=== PATIENT | male | born 1980 | race Caucasian/White ===

== ENCOUNTER 2020-12-10 12:09 | Inpatient (IN) | payer OTHER ==
[2020-12-10 12:36] VITALS: BMI 25.3
[2020-12-10] MEDS ORDERED: BISMUTH SUBSALICYLATE 524 MG/30 ML UD PO PRN (13:48)
[2020-12-10] MEDS ORDERED: NICOTINE POLACRILEX 2 MG GUM BUC PRN (13:48)
[2020-12-10] MEDS ORDERED: ONDANSETRON *ODT* 4 MG TABLET SL PRN (13:48)
[2020-12-10] MEDS ORDERED: MAGNESIUM CITRATE 300 ML BOTTLE PO PRN (13:48)
[2020-12-10] MEDS ORDERED: IBUPROFEN 400 MG TABLET (FP) PO PRN (13:48)
[2020-12-10] MEDS ORDERED: MAGNESIUM HYDROX 2400MG/30ML ORAL SUSPENSION 30 ML CUP PO PRN (13:48)
[2020-12-10] MEDS ORDERED: cloNIDine HCL 0.1 MG TABLET PO PRN (13:48)
[2020-12-10] MEDS ORDERED: METHOCARBAMOL 500 MG TABLET PO PRN (13:48)
[2020-12-10] MEDS ORDERED: MAG HYDROX/AL HYDROX/SIMETH 30 ML UNIT-DOSE CUP PO PRN (13:48)
[2020-12-10] MEDS ORDERED: ACETAMINOPHEN 325 MG TABLET (FP) PO PRN ×2 (13:48)
[2020-12-10] MEDS ORDERED: MENTHOL/PHENOL 1 EACH UD MM PRN (13:48)
[2020-12-10] MEDS ORDERED: METHADONE HCL 10 MG TABLET (FOR DETOX USE ONLY) PO ONE (14:00)
[2020-12-10] MEDS: GABAPENTIN 300 MG CAPSULE PO SCH ×2 (14:05→22:39)
[2020-12-10] MEDS: NICOTINE 21 MG/24 HOURS TOPICAL PATCH TD SCH (14:05)
[2020-12-10] MEDS: hydrOXYzine PAMOATE 25 MG CAPSULE (FP) PO SCH ×3 (14:05→22:39)
[2020-12-10] MEDS: AMOXICILLIN 500 MG CAPSULE (FP) PO SCH ×2 (15:00→22:39)
[2020-12-10 18:24] LABS: MCH 27.8 pg (25.7-33.7); MCHC 32.5 g/dl (32.0-35.9); MEAN CELL VOLUME 85.4 fl (80-96); MEAN PLT VOLUME 8.1 fl (7.5-11.1); PLATELET COUNT 352 K/MM3 (134-434); RBC 4.68 M/mm3 (4.00-5.60); WHITE BLOOD COUNT 6.6 K/mm3 (4.0-10.0)
[2020-12-10 18:25] LABS: POTASSIUM 4.1 mmol/L (3.5-5.1)
[2020-12-10 18:39] LABS: ALBUMIN 3.9 g/dl (3.4-5.0); BLOOD UREA NITROGEN 11.3 mg/dL (7-18); CALCIUM 9.5 mg/dL (8.5-10.1)
[2020-12-10 18:41] LABS: CREATININE 1.4 mg/dL (0.55-1.3)
[2020-12-10 18:44] LABS: BILIRUBIN,TOTAL 0.7 mg/dL (0.2-1); TOT PROT 8.1 g/dl (6.4-8.2)
[2020-12-10 19:21] LABS: HIV INTERPRETATION NEGATIVE (NEGATIVE)
[2020-12-10] MEDS: MELATONIN 5 MG TABLETS PO SCH (22:39)
[2020-12-10] MEDS: THIAMINE HCL 100 MG TABLET (FP) PO SCH (22:39)
[2020-12-11] MEDS: AMOXICILLIN 500 MG CAPSULE (FP) PO SCH ×3 (06:15→22:26)
[2020-12-11] MEDS: hydrOXYzine PAMOATE 25 MG CAPSULE (FP) PO SCH (06:15)
[2020-12-11] MEDS: GABAPENTIN 300 MG CAPSULE PO SCH ×3 (06:15→22:25)
[2020-12-11] MEDS ORDERED: METHADONE HCL 10 MG TABLET (FOR DETOX USE ONLY) ONE (08:29)
[2020-12-11] MEDS ORDERED: METHADONE HCL 5 MG TABLET (FOR DETOX USE ONLY) ONE (08:30)
[2020-12-11] MEDS ORDERED: METHADONE (DETOX) 20 MG, METHADONE (DETOX) 5 MG PO ONE (10:00)
[2020-12-11] MEDS: PRENATAL VITAMINS W/ FOLIC ACID TABLET (FP) PO SCH (10:16)
[2020-12-11] MEDS: NICOTINE 21 MG/24 HOURS TOPICAL PATCH TD SCH (10:17)
[2020-12-11] MEDS: risperiDONE 0.5 MG TABLET PO SCH (10:18)
[2020-12-11] MEDS: THIAMINE HCL 100 MG TABLET (FP) PO SCH (22:26)
[2020-12-11] MEDS: MELATONIN 5 MG TABLETS PO SCH (22:27)
[2020-12-12] MEDS: AMOXICILLIN 500 MG CAPSULE (FP) PO SCH ×3 (06:15→22:11)
[2020-12-12] MEDS: GABAPENTIN 300 MG CAPSULE PO SCH ×3 (06:16→22:11)
[2020-12-12] MEDS ORDERED: METHADONE HCL 10 MG TABLET (FOR DETOX USE ONLY) PO ONE (10:00)
[2020-12-12] MEDS: NICOTINE 21 MG/24 HOURS TOPICAL PATCH TD SCH (10:09)
[2020-12-12] MEDS: PRENATAL VITAMINS W/ FOLIC ACID TABLET (FP) PO SCH (10:10)
[2020-12-12] MEDS: risperiDONE 0.5 MG TABLET PO SCH (10:11)
[2020-12-12] MEDS: THIAMINE HCL 100 MG TABLET (FP) PO SCH (22:11)
[2020-12-12] MEDS: SUVOREXANT 10 MG TABLET PO PRN (22:11)
[2020-12-13] MEDS: AMOXICILLIN 500 MG CAPSULE (FP) PO SCH ×3 (07:16→22:00)
[2020-12-13] MEDS: GABAPENTIN 300 MG CAPSULE PO SCH ×3 (07:16→22:00)
[2020-12-13] MEDS ORDERED: METHADONE HCL 10 MG TABLET (FOR DETOX USE ONLY) ONE (08:12)
[2020-12-13] MEDS ORDERED: METHADONE HCL 5 MG TABLET (FOR DETOX USE ONLY) ONE (08:12)
[2020-12-13] MEDS: PRENATAL VITAMINS W/ FOLIC ACID TABLET (FP) PO SCH (09:59)
[2020-12-13] MEDS: risperiDONE 0.5 MG TABLET PO SCH (09:59)
[2020-12-13] MEDS: NICOTINE 21 MG/24 HOURS TOPICAL PATCH TD SCH (10:00)
[2020-12-13] MEDS ORDERED: METHADONE (DETOX) 10 MG, METHADONE (DETOX) 5 MG PO ONE (10:00)
[2020-12-13] MEDS: hydrOXYzine PAMOATE 25 MG CAPSULE (FP) PO PRN ×2 (10:02→22:00)
[2020-12-13] MEDS: THIAMINE HCL 100 MG TABLET (FP) PO SCH (22:00)
[2020-12-13] MEDS: SUVOREXANT 10 MG TABLET PO PRN (22:03)
[2020-12-14] MEDS: AMOXICILLIN 500 MG CAPSULE (FP) PO SCH ×3 (06:50→22:23)
[2020-12-14] MEDS: GABAPENTIN 300 MG CAPSULE PO SCH ×3 (06:50→22:23)
[2020-12-14] MEDS: risperiDONE 0.5 MG TABLET PO SCH (09:31)
[2020-12-14] MEDS: PRENATAL VITAMINS W/ FOLIC ACID TABLET (FP) PO SCH (09:31)
[2020-12-14] MEDS: NICOTINE 21 MG/24 HOURS TOPICAL PATCH TD SCH (09:32)
[2020-12-14] MEDS: hydrOXYzine PAMOATE 25 MG CAPSULE (FP) PO PRN ×2 (09:32→22:24)
[2020-12-14] MEDS ORDERED: METHADONE HCL 10 MG TABLET (FOR DETOX USE ONLY) PO ONE (10:00)
[2020-12-14] MEDS: THIAMINE HCL 100 MG TABLET (FP) PO SCH (22:24)
[2020-12-15] MEDS ORDERED: METHADONE HCL 5 MG TABLET (FOR DETOX USE ONLY) PO ONE (06:00)
[2020-12-15] MEDS: GABAPENTIN 300 MG CAPSULE PO SCH (06:27)
[2020-12-15] MEDS: AMOXICILLIN 500 MG CAPSULE (FP) PO SCH (06:27)
[2020-12-15] MEDS: hydrOXYzine PAMOATE 25 MG CAPSULE (FP) PO PRN (06:31)
[2020-12-15 09:06] VITALS: BP 110/73; PULSE 100; TEMP 97.7
[2020-12-15] MEDS: risperiDONE 0.5 MG TABLET PO SCH (10:49)
[2020-12-15] MEDS: PRENATAL VITAMINS W/ FOLIC ACID TABLET (FP) PO SCH (10:49)
[2020-12-15] MEDS: NICOTINE 21 MG/24 HOURS TOPICAL PATCH TD SCH (10:49)
== END 2020-12-15 09:22 | disposition home or self-care (01) | DRG 773 ==
LOC: YASAS 12:09 → Y3N 13:07
PROVIDERS: ADMIT Allergy & Immunology; ATTEND Allergy & Immunology
PROC: HZ2ZZZZ Detoxification Services for Substance Abuse Treatment (ICD-10-PCS; principal; 2020-12-10)
DX: F11.23 Opioid dependence with withdrawal (principal); F14.20 Cocaine dependence, uncomplicated; F12.20 Cannabis dependence, uncomplicated; F17.210 Nicotine dependence, cigarettes, uncomplicated; N17.9 Acute kidney failure, unspecified; F31.9 Bipolar disorder, unspecified; F43.10 Post-traumatic stress disorder, unspecified; G47.00 Insomnia, unspecified; L08.89 Other specified local infections of the skin and subcutaneous tissue; Z56.0 Unemployment, unspecified
CPT/HCPCS: 36415; 80053; 85027; 86780; 87389; C9803; U0003

== ENCOUNTER 2022-12-16 16:20 | Inpatient (IN) | payer OTHER ==
[2022-12-16 17:03] VITALS: BMI 25.0
[2022-12-16] MEDS ORDERED: cloNIDine HCL 0.1 MG TABLET PO PRN (18:00)
[2022-12-16] MEDS ORDERED: POLYETHYLENE GLYCOL (HEALTHYLAX) 3350 17 GM PACKET PO PRN (18:01)
[2022-12-16] MEDS ORDERED: ACETAMINOPHEN 325 MG TABLET (FP) PO PRN ×2 (18:01)
[2022-12-16] MEDS ORDERED: DICYCLOMINE HCL 10 MG CAPSULE PO PRN (18:01)
[2022-12-16] MEDS ORDERED: METHOCARBAMOL 500 MG TABLET PO PRN (18:01)
[2022-12-16] MEDS ORDERED: BISMUTH SUBSALICYLATE 524 MG/30 ML PO PRN (18:01)
[2022-12-16] MEDS ORDERED: MAG HYDROX/AL HYDROX/SIMETH 30 ML UNIT-DOSE CUP PO PRN (18:01)
[2022-12-16] MEDS ORDERED: MAGNESIUM HYDROX 2400MG/30ML ORAL SUSPENSION 30 ML CUP PO PRN (18:01)
[2022-12-16] MEDS ORDERED: BENZOCAINE/MENTHOL (CHLORASEPTIC ) LOZENGE MM PRN (18:01)
[2022-12-16] MEDS ORDERED: IBUPROFEN 400 MG TABLET (FP) PO PRN (18:01)
[2022-12-16] MEDS ORDERED: LOPERAMIDE HCL 2 MG CAPSULE PO PRN (18:01)
[2022-12-16] MEDS ORDERED: NALOXONE HCL (KLOXXADO) 8 MG SPRAY NS PRN (18:01)
[2022-12-16] MEDS ORDERED: IBUPROFEN 600 MG TABLET (FP) PO PRN (18:01)
[2022-12-16] MEDS ORDERED: ONDANSETRON *ODT* 4 MG TABLET SL PRN (18:01)
[2022-12-16] MEDS: NICOTINE 21 MG/24 HOURS TOPICAL PATCH TD SCH ×2 (18:16→19:58)
[2022-12-16] MEDS ORDERED: methaDONE HCL 10 MG TABLET (FOR DETOX USE ONLY) PO ONE (22:00)
[2022-12-16] MEDS: THIAMINE HCL 100 MG TABLET (FP) PO SCH (22:48)
[2022-12-16] MEDS: MELATONIN 5 MG TABLETS PO SCH (22:48)
[2022-12-17] MEDS: hydrOXYzine PAMOATE 25 MG CAPSULE (FP) PO PRN ×2 (10:30→22:09)
[2022-12-17] MEDS: NICOTINE 21 MG/24 HOURS TOPICAL PATCH TD SCH (10:32)
[2022-12-17 12:00] LABS: HEMATOCRIT 36.4 % (35.4-49); HEMOGLOBIN 12.1 GM/dL (11.7-16.9); MCH 29.1 pg (25.7-33.7); MCHC 33.3 g/dl (32.0-35.9); MEAN CELL VOLUME 87.2 fl (80-96); MEAN PLT VOLUME 8.2 fl (7.5-11.1); PLATELET COUNT 294 10^3/uL (134-434); RBC 4.17 M/mm3 (4.00-5.60); RDW 14.1 % (11.9-15.9); WHITE BLOOD COUNT 4.6 K/mm3 (4.0-10.0)
[2022-12-17 12:06] LABS: CALCIUM 8.5 mg/dL (8.5-10.1)
[2022-12-17 12:07] LABS: ALBUMIN 2.7 g/dl (3.4-5.0)
[2022-12-17 12:09] LABS: BLOOD UREA NITROGEN 10.6 mg/dL (7-18)
[2022-12-17 12:10] LABS: CREATININE 1.1 mg/dL (0.55-1.3)
[2022-12-17 12:11] LABS: TOT PROT 5.5 g/dl (6.4-8.2)
[2022-12-17 12:14] LABS: BILIRUBIN,TOTAL 0.2 mg/dL (0.2-1)
[2022-12-17] MEDS: MELATONIN 5 MG TABLETS PO SCH (22:08)
[2022-12-17] MEDS: THIAMINE HCL 100 MG TABLET (FP) PO SCH (22:08)
[2022-12-17] MEDS: GABAPENTIN 300 MG CAPSULE PO SCH (22:09)
[2022-12-18] MEDS ORDERED: methaDONE HCL 10 MG TABLET (FOR DETOX USE ONLY) PO ONE (10:00)
[2022-12-18] MEDS: NICOTINE 21 MG/24 HOURS TOPICAL PATCH TD SCH (10:36)
[2022-12-18] MEDS: GABAPENTIN 300 MG CAPSULE PO SCH ×2 (10:37→22:11)
[2022-12-18] MEDS: MELATONIN 5 MG TABLETS PO SCH (22:11)
[2022-12-18] MEDS: THIAMINE HCL 100 MG TABLET (FP) PO SCH (22:11)
[2022-12-19] MEDS: GABAPENTIN 300 MG CAPSULE PO SCH ×2 (10:27→22:56)
[2022-12-19] MEDS: NICOTINE 21 MG/24 HOURS TOPICAL PATCH TD SCH (10:30)
[2022-12-19] MEDS: THIAMINE HCL 100 MG TABLET (FP) PO SCH (22:55)
[2022-12-19] MEDS: MELATONIN 5 MG TABLETS PO SCH (22:55)
[2022-12-20] MEDS ORDERED: methaDONE HCL 10 MG TABLET (FOR DETOX USE ONLY) PO ONE (10:00)
[2022-12-20] MEDS: GABAPENTIN 300 MG CAPSULE PO SCH ×2 (10:04→22:21)
[2022-12-20] MEDS: NICOTINE 21 MG/24 HOURS TOPICAL PATCH TD SCH (10:04)
[2022-12-20 21:50] VITALS: RESP 18
[2022-12-20] MEDS: MELATONIN 5 MG TABLETS PO SCH (22:21)
[2022-12-20] MEDS: THIAMINE HCL 100 MG TABLET (FP) PO SCH (22:21)
[2022-12-20] MEDS: hydrOXYzine PAMOATE 25 MG CAPSULE (FP) PO PRN (22:22)
[2022-12-21 09:35] VITALS: BP 110/65; PULSE 77; TEMP 97.1
[2022-12-21] MEDS: NICOTINE 21 MG/24 HOURS TOPICAL PATCH TD SCH (10:27)
[2022-12-21] MEDS: GABAPENTIN 300 MG CAPSULE PO SCH (10:27)
== END 2022-12-21 11:36 | disposition home or self-care (01) | DRG 773 ==
LOC: YASAS 16:20 → Y6N 18:28
PROVIDERS: ADMIT Allergy & Immunology; ATTEND Family Medicine
PROC: HZ2ZZZZ Detoxification Services for Substance Abuse Treatment (ICD-10-PCS; principal; 2022-12-16)
DX: F11.23 Opioid dependence with withdrawal (principal); F12.10 Cannabis abuse, uncomplicated; F17.210 Nicotine dependence, cigarettes, uncomplicated; F39 Unspecified mood [affective] disorder; F32.A Depression, unspecified; F43.10 Post-traumatic stress disorder, unspecified
CPT/HCPCS: 36415; 80053; 85027; 86780; 87811; C9803-CS; U0003; U0005

== ENCOUNTER 2023-01-10 12:39 | Inpatient (IN) | payer OTHER ==
[2023-01-10 13:23] VITALS: BMI 25.7
[2023-01-10] MEDS ORDERED: MAGNESIUM HYDROX 2400MG/30ML ORAL SUSPENSION 30 ML CUP PO PRN (13:36)
[2023-01-10] MEDS ORDERED: NALOXONE HCL (KLOXXADO) 8 MG SPRAY NS PRN (13:36)
[2023-01-10] MEDS ORDERED: METHOCARBAMOL 500 MG TABLET PO PRN (13:36)
[2023-01-10] MEDS ORDERED: ACETAMINOPHEN 325 MG TABLET (FP) PO PRN ×2 (13:36)
[2023-01-10] MEDS ORDERED: hydrOXYzine PAMOATE 25 MG CAPSULE (FP) PO PRN (13:36)
[2023-01-10] MEDS ORDERED: cloNIDine HCL 0.1 MG TABLET PO PRN (13:36)
[2023-01-10] MEDS ORDERED: ONDANSETRON *ODT* 4 MG TABLET SL PRN (13:36)
[2023-01-10] MEDS ORDERED: MAG HYDROX/AL HYDROX/SIMETH 30 ML UNIT-DOSE CUP PO PRN (13:36)
[2023-01-10] MEDS ORDERED: POLYETHYLENE GLYCOL (HEALTHYLAX) 3350 17 GM PACKET PO PRN (13:36)
[2023-01-10] MEDS ORDERED: BENZOCAINE/MENTHOL (CHLORASEPTIC ) LOZENGE MM PRN (13:36)
[2023-01-10] MEDS ORDERED: NICOTINE POLACRILEX 4 MG GUM BUC PRN (13:36)
[2023-01-10] MEDS ORDERED: BISMUTH SUBSALICYLATE 262 MG/15 ML BTL PO PRN (13:36)
[2023-01-10] MEDS ORDERED: methaDONE HCL 10 MG TABLET (FOR DETOX USE ONLY) PO ONE (13:36)
[2023-01-10] MEDS ORDERED: DICYCLOMINE HCL 10 MG CAPSULE PO PRN (13:36)
[2023-01-10] MEDS ORDERED: IBUPROFEN 400 MG TABLET (FP) PO PRN (13:36)
[2023-01-10] MEDS ORDERED: LOPERAMIDE HCL 2 MG CAPSULE PO PRN (13:36)
[2023-01-10] MEDS ORDERED: IBUPROFEN 600 MG TABLET (FP) PO PRN (13:36)
[2023-01-10] MEDS: NICOTINE 21 MG/24 HOURS TOPICAL PATCH TD SCH (14:31)
[2023-01-10] MEDS ORDERED: NICOTINE 21 MG/24 HOURS TOPICAL PATCH ONE (14:33)
[2023-01-10] MEDS ORDERED: methaDONE HCL 10 MG TABLET (FOR DETOX USE ONLY) ONE (14:34)
[2023-01-10] MEDS ORDERED: MELATONIN 5 MG TABLETS PO SCH (22:00)
[2023-01-10] MEDS: THIAMINE HCL 100 MG TABLET (FP) PO SCH (23:58)
[2023-01-11] MEDS: NICOTINE 21 MG/24 HOURS TOPICAL PATCH TD SCH (10:29)
[2023-01-11] MEDS: PRENATAL VITAMINS W/ FOLIC ACID TABLET (FP) PO SCH (10:29)
[2023-01-11 11:26] LABS: HEMATOCRIT 38.2 % (35.4-49); HEMOGLOBIN 12.9 GM/dL (11.7-16.9); MCHC 33.8 g/dl (32.0-35.9); MEAN CELL VOLUME 85.8 fl (80-96); MEAN PLT VOLUME 9.3 fl (7.5-11.1); PLATELET COUNT 148 10^3/uL (134-434); RBC 4.45 M/mm3 (4.00-5.60); RDW 13.8 % (11.9-15.9); WHITE BLOOD COUNT 5.3 K/mm3 (4.0-10.0)
[2023-01-11 11:31] LABS: CALCIUM 9.2 mg/dL (8.5-10.1)
[2023-01-11 11:32] LABS: ALBUMIN 3.3 g/dl (3.4-5.0); BLOOD UREA NITROGEN 6.3 mg/dL (7-18)
[2023-01-11 11:35] LABS: BILIRUBIN,TOTAL 0.4 mg/dL (0.2-1); CREATININE 1.2 mg/dL (0.55-1.3)
[2023-01-11 11:37] LABS: TOT PROT 6.4 g/dl (6.4-8.2)
[2023-01-11] MEDS: GABAPENTIN 300 MG CAPSULE PO SCH ×2 (13:29→22:18)
[2023-01-11] MEDS: THIAMINE HCL 100 MG TABLET (FP) PO SCH (22:19)
[2023-01-11] MEDS: SUVOREXANT 10 MG TABLET PO PRN (23:22)
[2023-01-12] MEDS ORDERED: methaDONE HCL 10 MG TABLET (FOR DETOX USE ONLY) PO ONE (10:00)
[2023-01-12] MEDS: GABAPENTIN 300 MG CAPSULE PO SCH ×2 (10:10→22:22)
[2023-01-12] MEDS: PRENATAL VITAMINS W/ FOLIC ACID TABLET (FP) PO SCH (10:10)
[2023-01-12] MEDS: NICOTINE 21 MG/24 HOURS TOPICAL PATCH TD SCH (10:12)
[2023-01-12] MEDS: NICOTINE 10 MG CARTRIDGE (INHALER) IH PRN (10:12)
[2023-01-12] MEDS: THIAMINE HCL 100 MG TABLET (FP) PO SCH (22:22)
[2023-01-12] MEDS: SUVOREXANT 10 MG TABLET PO PRN (22:24)
[2023-01-13] MEDS: PRENATAL VITAMINS W/ FOLIC ACID TABLET (FP) PO SCH (10:06)
[2023-01-13] MEDS: GABAPENTIN 300 MG CAPSULE PO SCH ×2 (10:06→22:04)
[2023-01-13] MEDS: NICOTINE 10 MG CARTRIDGE (INHALER) IH PRN (10:07)
[2023-01-13] MEDS: NICOTINE 21 MG/24 HOURS TOPICAL PATCH TD SCH (10:07)
[2023-01-13] MEDS: THIAMINE HCL 100 MG TABLET (FP) PO SCH (22:04)
[2023-01-13] MEDS: SUVOREXANT 10 MG TABLET PO PRN (22:04)
[2023-01-14 06:40] VITALS: BP 117/84; PULSE 60; RESP 17; TEMP 97.5
[2023-01-14] MEDS ORDERED: methaDONE HCL 10 MG TABLET (FOR DETOX USE ONLY) PO ONE (10:00)
== END 2023-01-14 05:58 | disposition home or self-care (01) | DRG 773 ==
LOC: YASAS 12:39 → Y6N 14:51
PROVIDERS: ADMIT Allergy & Immunology; ATTEND Surgery
PROC: HZ2ZZZZ Detoxification Services for Substance Abuse Treatment (ICD-10-PCS; principal; 2023-01-10)
DX: F11.23 Opioid dependence with withdrawal (principal); F17.210 Nicotine dependence, cigarettes, uncomplicated; F19.282 Other psychoactive substance dependence with psychoactive substance-induced sleep disorder; F31.9 Bipolar disorder, unspecified; R56.1 Post traumatic seizures; Z87.820 Personal history of traumatic brain injury
CPT/HCPCS: 36415; 80053; 85027; 86780; 87811; 93005; 93010; C9803-CS; U0003; U0005

== ENCOUNTER 2023-04-26 14:23 | Inpatient (IN) | payer OTHER ==
[2023-04-26 15:27] VITALS: BMI 24.4
[2023-04-26] MEDS ORDERED: AMMONIUM LACTATE 12% LOTION 225 GM BOTTLE TP PRN (18:43)
[2023-04-26] MEDS ORDERED: guaiFENesin 600 MG TABLET.ER (FP) PO PRN (18:43)
[2023-04-26] MEDS ORDERED: MAGNESIUM HYDROX 2400MG/30ML ORAL SUSPENSION 30 ML CUP PO PRN (18:43)
[2023-04-26] MEDS ORDERED: MAG HYDROX/AL HYDROX/SIMETH 30 ML UNIT-DOSE CUP PO PRN (18:43)
[2023-04-26] MEDS ORDERED: POLYETHYLENE GLYCOL (HEALTHYLAX) 3350 17 GM PACKET PO PRN (18:43)
[2023-04-26] MEDS ORDERED: LOPERAMIDE HCL 2 MG CAPSULE PO PRN (18:43)
[2023-04-26] MEDS ORDERED: NALOXONE HCL (KLOXXADO) 8 MG SPRAY NS PRN (18:43)
[2023-04-26] MEDS ORDERED: BENZOCAINE/MENTHOL (CHLORASEPTIC ) LOZENGE MM PRN (18:43)
[2023-04-26] MEDS ORDERED: NALOXONE HCL 0.4 MG/ML VIAL IM PRN (18:43)
[2023-04-26] MEDS ORDERED: COLLOIDAL OATMEAL 1 BAR EACH TP PRN (18:43)
[2023-04-26] MEDS ORDERED: IBUPROFEN 400 MG TABLET (FP) PO PRN (18:43)
[2023-04-26] MEDS ORDERED: hydrOXYzine PAMOATE 25 MG CAPSULE (FP) PO PRN (18:43)
[2023-04-26] MEDS ORDERED: BENZONATATE 200 MG CAPSULE PO PRN (18:43)
[2023-04-26] MEDS ORDERED: IBUPROFEN 600 MG TABLET (FP) PO PRN (18:43)
[2023-04-26] MEDS ORDERED: ACETAMINOPHEN 325 MG TABLET (FP) PO PRN (18:43)
[2023-04-26] MEDS ORDERED: TUBERCULIN PPD 5 TU/0.1ML VIAL ID ONE (21:28)
[2023-04-26] MEDS: MELATONIN 5 MG TABLETS PO SCH (21:39)
[2023-04-26] MEDS: THIAMINE HCL 100 MG TABLET (FP) PO SCH (21:39)
[2023-04-27] MEDS ORDERED: methaDONE HCL 10 MG TABLET PO ONE (09:23)
[2023-04-27] MEDS: PRENATAL VITAMINS W/ FOLIC ACID TABLET (FP) PO SCH (09:31)
[2023-04-27] MEDS: NICOTINE 10 MG CARTRIDGE (INHALER) IH PRN ×3 (09:33→21:21)
[2023-04-27] MEDS: NICOTINE 14 MG/24 HOURS TOPICAL PATCH TD SCH (09:33)
[2023-04-27 11:35] LABS: PH,URINE 5.5 (5.0-8.0); URINE APPEARANCE CLEAR; URINE BILIRUBIN NEGATIVE (NEGATIVE); URINE COLOR YELLOW; URINE GLUCOSE (UA) NEGATIVE (NEGATIVE); URINE KETONE NEGATIVE (NEGATIVE); URINE LEUK ESTERASE NEGATIVE (NEGATIVE); URINE NITRITE NEGATIVE (NEGATIVE); URINE PROTEIN NEGATIVE (NEGATIVE); URINE UROBILINOGEN 0.2 mg/dL (0.2-1.0)
[2023-04-27 11:40] LABS: HEMATOCRIT 36.8 % (35.4-49); HEMOGLOBIN 12.4 GM/dL (11.7-16.9); MCH 28.8 pg (25.7-33.7); MCHC 33.9 g/dl (32.0-35.9); MEAN PLT VOLUME 8.9 fl (7.5-11.1); PLATELET COUNT 181 10^3/uL (134-434); RBC 4.33 M/mm3 (4.00-5.60); RDW 14.6 % (11.9-15.9); WHITE BLOOD COUNT 4.8 K/mm3 (4.0-10.0)
[2023-04-27 12:12] LABS: POTASSIUM 4.3 mmol/L (3.5-5.1)
[2023-04-27 12:30] LABS: ALBUMIN 3.4 g/dl (3.4-5.0); BLOOD UREA NITROGEN 20.4 mg/dL (7-18); CALCIUM 9.2 mg/dL (8.5-10.1); SYPHILIS W/ RPR CONF NON-REACTIVE (NONREACTIVE)
[2023-04-27 12:33] LABS: CREATININE 1.2 mg/dL (0.55-1.3)
[2023-04-27 12:35] LABS: BILIRUBIN,TOTAL 0.8 mg/dL (0.2-1); TOT PROT 6.5 g/dl (6.4-8.2)
[2023-04-27] MEDS: GABAPENTIN 400 MG CAPSULE PO SCH ×2 (13:15→21:22)
[2023-04-27] MEDS: MELATONIN 5 MG TABLETS PO SCH (21:21)
[2023-04-27] MEDS: THIAMINE HCL 100 MG TABLET (FP) PO SCH (21:21)
[2023-04-28] MEDS ORDERED: methaDONE HCL 10 MG TABLET PO SCH (06:00)
[2023-04-28] MEDS: GABAPENTIN 400 MG CAPSULE PO SCH ×3 (06:12→21:09)
[2023-04-28] MEDS: NICOTINE 10 MG CARTRIDGE (INHALER) IH PRN ×3 (06:14→21:10)
[2023-04-28] MEDS: NICOTINE 14 MG/24 HOURS TOPICAL PATCH TD SCH (10:10)
[2023-04-28] MEDS: PRENATAL VITAMINS W/ FOLIC ACID TABLET (FP) PO SCH (10:10)
[2023-04-28] MEDS: MELATONIN 5 MG TABLETS PO SCH (21:09)
[2023-04-28] MEDS: THIAMINE HCL 100 MG TABLET (FP) PO SCH (21:09)
[2023-04-29] MEDS: GABAPENTIN 400 MG CAPSULE PO SCH ×3 (05:56→21:25)
[2023-04-29] MEDS: NICOTINE 10 MG CARTRIDGE (INHALER) IH PRN ×3 (06:24→21:25)
[2023-04-29] MEDS: PRENATAL VITAMINS W/ FOLIC ACID TABLET (FP) PO SCH (10:17)
[2023-04-29] MEDS: NICOTINE 14 MG/24 HOURS TOPICAL PATCH TD SCH (10:17)
[2023-04-29] MEDS: MELATONIN 5 MG TABLETS PO SCH (21:25)
[2023-04-29] MEDS: THIAMINE HCL 100 MG TABLET (FP) PO SCH (21:25)
[2023-04-30] MEDS: NICOTINE 10 MG CARTRIDGE (INHALER) IH PRN ×4 (06:01→21:38)
[2023-04-30] MEDS: GABAPENTIN 400 MG CAPSULE PO SCH ×3 (06:01→21:38)
[2023-04-30] MEDS: PRENATAL VITAMINS W/ FOLIC ACID TABLET (FP) PO SCH (09:47)
[2023-04-30] MEDS: NICOTINE 14 MG/24 HOURS TOPICAL PATCH TD SCH (09:48)
[2023-04-30] MEDS: MELATONIN 5 MG TABLETS PO SCH (21:38)
[2023-04-30] MEDS: THIAMINE HCL 100 MG TABLET (FP) PO SCH (21:38)
[2023-05-01] MEDS: GABAPENTIN 400 MG CAPSULE PO SCH ×3 (06:23→21:07)
[2023-05-01] MEDS: NICOTINE 10 MG CARTRIDGE (INHALER) IH PRN ×4 (06:25→21:08)
[2023-05-01] MEDS: NICOTINE 14 MG/24 HOURS TOPICAL PATCH TD SCH (10:22)
[2023-05-01] MEDS: PRENATAL VITAMINS W/ FOLIC ACID TABLET (FP) PO SCH (10:22)
[2023-05-01] MEDS: THIAMINE HCL 100 MG TABLET (FP) PO SCH (21:07)
[2023-05-01] MEDS: MELATONIN 5 MG TABLETS PO SCH (21:07)
[2023-05-02] MEDS: GABAPENTIN 400 MG CAPSULE PO SCH ×3 (06:04→21:06)
[2023-05-02] MEDS: NICOTINE 10 MG CARTRIDGE (INHALER) IH PRN ×4 (06:04→21:06)
[2023-05-02] MEDS: PRENATAL VITAMINS W/ FOLIC ACID TABLET (FP) PO SCH (09:39)
[2023-05-02] MEDS: NICOTINE 14 MG/24 HOURS TOPICAL PATCH TD SCH (09:40)
[2023-05-02] MEDS: MELATONIN 5 MG TABLETS PO SCH (21:06)
[2023-05-02] MEDS: THIAMINE HCL 100 MG TABLET (FP) PO SCH (21:06)
[2023-05-03] MEDS: GABAPENTIN 400 MG CAPSULE PO SCH ×3 (05:46→21:25)
[2023-05-03] MEDS: NICOTINE 10 MG CARTRIDGE (INHALER) IH PRN ×4 (05:47→21:26)
[2023-05-03] MEDS: methaDONE 80 MG, methaDONE 20 MG PO SCH (06:27)
[2023-05-03] MEDS: PRENATAL VITAMINS W/ FOLIC ACID TABLET (FP) PO SCH (09:49)
[2023-05-03] MEDS: NICOTINE 14 MG/24 HOURS TOPICAL PATCH TD SCH (09:49)
[2023-05-03] MEDS ORDERED: GABAPENTIN 400 MG CAPSULE PO SCH (10:00)
[2023-05-03] MEDS ORDERED: methaDONE 80 MG, methaDONE 20 MG PO SCH (10:00)
[2023-05-03] MEDS ORDERED: methaDONE HCL 40 MG DISPERSABLE TABLET PO SCH (10:00)
[2023-05-03] MEDS: MELATONIN 5 MG TABLETS PO SCH (21:25)
[2023-05-03] MEDS: THIAMINE HCL 100 MG TABLET (FP) PO SCH (21:25)
[2023-05-04] MEDS: methaDONE 80 MG, methaDONE 20 MG PO SCH (05:47)
[2023-05-04] MEDS: NICOTINE 10 MG CARTRIDGE (INHALER) IH PRN ×4 (05:47→21:10)
[2023-05-04] MEDS: PRENATAL VITAMINS W/ FOLIC ACID TABLET (FP) PO SCH (10:19)
[2023-05-04] MEDS: GABAPENTIN 400 MG CAPSULE PO SCH ×3 (10:19→21:10)
[2023-05-04] MEDS: NICOTINE 14 MG/24 HOURS TOPICAL PATCH TD SCH (10:20)
[2023-05-04] MEDS: THIAMINE HCL 100 MG TABLET (FP) PO SCH (21:10)
[2023-05-04] MEDS: MELATONIN 5 MG TABLETS PO SCH (21:10)
[2023-05-05] MEDS: methaDONE 80 MG, methaDONE 20 MG PO SCH (06:19)
[2023-05-05] MEDS: NICOTINE 10 MG CARTRIDGE (INHALER) IH PRN ×3 (06:21→21:23)
[2023-05-05] MEDS: NICOTINE 14 MG/24 HOURS TOPICAL PATCH TD SCH (09:43)
[2023-05-05] MEDS: GABAPENTIN 400 MG CAPSULE PO SCH ×3 (09:43→21:23)
[2023-05-05] MEDS: PRENATAL VITAMINS W/ FOLIC ACID TABLET (FP) PO SCH (09:43)
[2023-05-05] MEDS: THIAMINE HCL 100 MG TABLET (FP) PO SCH (21:22)
[2023-05-05] MEDS: MELATONIN 5 MG TABLETS PO SCH (21:23)
[2023-05-06] MEDS: methaDONE 80 MG, methaDONE 20 MG PO SCH (05:52)
[2023-05-06] MEDS: NICOTINE 10 MG CARTRIDGE (INHALER) IH PRN ×3 (05:53→15:57)
[2023-05-06] MEDS: PRENATAL VITAMINS W/ FOLIC ACID TABLET (FP) PO SCH (10:34)
[2023-05-06] MEDS: GABAPENTIN 400 MG CAPSULE PO SCH ×3 (10:34→21:23)
[2023-05-06] MEDS: NICOTINE 14 MG/24 HOURS TOPICAL PATCH TD SCH (10:34)
[2023-05-06] MEDS: THIAMINE HCL 100 MG TABLET (FP) PO SCH (21:23)
[2023-05-06] MEDS: MELATONIN 5 MG TABLETS PO SCH (21:23)
[2023-05-07] MEDS: NICOTINE 10 MG CARTRIDGE (INHALER) IH PRN ×4 (06:12→21:24)
[2023-05-07] MEDS: methaDONE 80 MG, methaDONE 20 MG PO SCH (06:12)
[2023-05-07] MEDS: GABAPENTIN 400 MG CAPSULE PO SCH ×3 (09:41→21:24)
[2023-05-07] MEDS: NICOTINE 14 MG/24 HOURS TOPICAL PATCH TD SCH (09:41)
[2023-05-07] MEDS: PRENATAL VITAMINS W/ FOLIC ACID TABLET (FP) PO SCH ×2 (09:41→09:43)
[2023-05-07] MEDS: THIAMINE HCL 100 MG TABLET (FP) PO SCH (21:24)
[2023-05-07] MEDS: MELATONIN 5 MG TABLETS PO SCH (21:24)
[2023-05-08] MEDS: methaDONE 80 MG, methaDONE 20 MG PO SCH (06:16)
[2023-05-08] MEDS: NICOTINE 10 MG CARTRIDGE (INHALER) IH PRN ×3 (06:16→21:24)
[2023-05-08] MEDS: NICOTINE 14 MG/24 HOURS TOPICAL PATCH TD SCH (09:48)
[2023-05-08] MEDS: GABAPENTIN 400 MG CAPSULE PO SCH ×3 (09:49→21:24)
[2023-05-08] MEDS: PRENATAL VITAMINS W/ FOLIC ACID TABLET (FP) PO SCH (09:50)
[2023-05-08] MEDS: THIAMINE HCL 100 MG TABLET (FP) PO SCH (21:24)
[2023-05-08] MEDS: MELATONIN 5 MG TABLETS PO SCH (21:24)
[2023-05-09] MEDS: methaDONE 80 MG, methaDONE 20 MG PO SCH (06:09)
[2023-05-09] MEDS: NICOTINE 10 MG CARTRIDGE (INHALER) IH PRN ×3 (06:09→21:33)
[2023-05-09] MEDS: PRENATAL VITAMINS W/ FOLIC ACID TABLET (FP) PO SCH (10:30)
[2023-05-09] MEDS: GABAPENTIN 400 MG CAPSULE PO SCH ×3 (10:31→21:33)
[2023-05-09] MEDS: NICOTINE 14 MG/24 HOURS TOPICAL PATCH TD SCH (10:31)
[2023-05-09] MEDS: THIAMINE HCL 100 MG TABLET (FP) PO SCH (21:33)
[2023-05-09] MEDS: MELATONIN 5 MG TABLETS PO SCH (21:33)
[2023-05-10] MEDS: methaDONE 80 MG, methaDONE 20 MG PO SCH (06:08)
[2023-05-10] MEDS: NICOTINE 10 MG CARTRIDGE (INHALER) IH PRN ×3 (09:34→21:28)
[2023-05-10] MEDS: GABAPENTIN 400 MG CAPSULE PO SCH ×3 (09:35→21:28)
[2023-05-10] MEDS: NICOTINE 14 MG/24 HOURS TOPICAL PATCH TD SCH (09:35)
[2023-05-10] MEDS: PRENATAL VITAMINS W/ FOLIC ACID TABLET (FP) PO SCH (09:36)
[2023-05-10] MEDS: THIAMINE HCL 100 MG TABLET (FP) PO SCH (21:28)
[2023-05-10] MEDS: MELATONIN 5 MG TABLETS PO SCH (21:29)
[2023-05-11] MEDS: methaDONE 80 MG, methaDONE 20 MG PO SCH (05:55)
[2023-05-11] MEDS: NICOTINE 10 MG CARTRIDGE (INHALER) IH PRN ×4 (05:56→21:03)
[2023-05-11] MEDS: PRENATAL VITAMINS W/ FOLIC ACID TABLET (FP) PO SCH (10:50)
[2023-05-11] MEDS: NICOTINE 14 MG/24 HOURS TOPICAL PATCH TD SCH (10:51)
[2023-05-11] MEDS: GABAPENTIN 400 MG CAPSULE PO SCH ×3 (10:51→21:03)
[2023-05-11] MEDS: MELATONIN 5 MG TABLETS PO SCH (21:03)
[2023-05-11] MEDS: THIAMINE HCL 100 MG TABLET (FP) PO SCH (21:03)
[2023-05-12] MEDS: NICOTINE 10 MG CARTRIDGE (INHALER) IH PRN ×4 (06:29→21:14)
[2023-05-12] MEDS: methaDONE 80 MG, methaDONE 20 MG PO SCH (06:29)
[2023-05-12] MEDS: NICOTINE 14 MG/24 HOURS TOPICAL PATCH TD SCH (09:43)
[2023-05-12] MEDS: GABAPENTIN 400 MG CAPSULE PO SCH ×3 (09:43→21:13)
[2023-05-12] MEDS: PRENATAL VITAMINS W/ FOLIC ACID TABLET (FP) PO SCH (09:44)
[2023-05-12] MEDS: MELATONIN 5 MG TABLETS PO SCH (21:13)
[2023-05-12] MEDS: THIAMINE HCL 100 MG TABLET (FP) PO SCH (21:13)
[2023-05-13] MEDS: methaDONE 80 MG, methaDONE 20 MG PO SCH (06:00)
[2023-05-13] MEDS: NICOTINE 10 MG CARTRIDGE (INHALER) IH PRN ×4 (06:01→21:06)
[2023-05-13] MEDS: NICOTINE 14 MG/24 HOURS TOPICAL PATCH TD SCH (09:38)
[2023-05-13] MEDS: GABAPENTIN 400 MG CAPSULE PO SCH ×3 (09:38→21:06)
[2023-05-13] MEDS: PRENATAL VITAMINS W/ FOLIC ACID TABLET (FP) PO SCH (09:38)
[2023-05-13] MEDS: MELATONIN 5 MG TABLETS PO SCH (21:06)
[2023-05-13] MEDS: THIAMINE HCL 100 MG TABLET (FP) PO SCH (21:06)
[2023-05-14] MEDS: methaDONE 80 MG, methaDONE 20 MG PO SCH (06:19)
[2023-05-14] MEDS: NICOTINE 10 MG CARTRIDGE (INHALER) IH PRN ×4 (06:19→21:19)
[2023-05-14] MEDS: GABAPENTIN 400 MG CAPSULE PO SCH ×3 (10:00→21:18)
[2023-05-14] MEDS: PRENATAL VITAMINS W/ FOLIC ACID TABLET (FP) PO SCH (10:00)
[2023-05-14] MEDS: NICOTINE 14 MG/24 HOURS TOPICAL PATCH TD SCH (10:01)
[2023-05-14] MEDS: MELATONIN 5 MG TABLETS PO SCH (21:18)
[2023-05-14] MEDS: THIAMINE HCL 100 MG TABLET (FP) PO SCH (21:18)
[2023-05-15] MEDS: methaDONE 80 MG, methaDONE 20 MG PO SCH (05:47)
[2023-05-15] MEDS: NICOTINE 10 MG CARTRIDGE (INHALER) IH PRN ×4 (05:47→21:18)
[2023-05-15] MEDS: NICOTINE 14 MG/24 HOURS TOPICAL PATCH TD SCH (09:36)
[2023-05-15] MEDS: GABAPENTIN 400 MG CAPSULE PO SCH ×3 (09:36→21:17)
[2023-05-15] MEDS: PRENATAL VITAMINS W/ FOLIC ACID TABLET (FP) PO SCH (09:36)
[2023-05-15] MEDS: THIAMINE HCL 100 MG TABLET (FP) PO SCH (21:17)
[2023-05-15] MEDS: MELATONIN 5 MG TABLETS PO SCH (21:17)
[2023-05-16] MEDS: NICOTINE 10 MG CARTRIDGE (INHALER) IH PRN ×4 (06:04→21:45)
[2023-05-16] MEDS: methaDONE 80 MG, methaDONE 20 MG PO SCH (06:04)
[2023-05-16] MEDS: NICOTINE 14 MG/24 HOURS TOPICAL PATCH TD SCH (10:14)
[2023-05-16] MEDS: GABAPENTIN 400 MG CAPSULE PO SCH ×3 (10:14→21:45)
[2023-05-16] MEDS: PRENATAL VITAMINS W/ FOLIC ACID TABLET (FP) PO SCH (10:14)
[2023-05-16] MEDS: MELATONIN 5 MG TABLETS PO SCH (21:45)
[2023-05-16] MEDS: THIAMINE HCL 100 MG TABLET (FP) PO SCH (21:45)
[2023-05-17] MEDS: methaDONE 80 MG, methaDONE 20 MG PO SCH (06:09)
[2023-05-17] MEDS: NICOTINE 10 MG CARTRIDGE (INHALER) IH PRN ×4 (06:09→21:09)
[2023-05-17] MEDS: NICOTINE 14 MG/24 HOURS TOPICAL PATCH TD SCH (09:45)
[2023-05-17] MEDS: GABAPENTIN 400 MG CAPSULE PO SCH ×3 (09:45→21:09)
[2023-05-17] MEDS: PRENATAL VITAMINS W/ FOLIC ACID TABLET (FP) PO SCH (09:45)
[2023-05-17] MEDS: THIAMINE HCL 100 MG TABLET (FP) PO SCH (21:09)
[2023-05-17] MEDS: MELATONIN 5 MG TABLETS PO SCH (21:09)
[2023-05-18] MEDS: methaDONE 80 MG, methaDONE 20 MG PO SCH (05:56)
[2023-05-18] MEDS: NICOTINE 10 MG CARTRIDGE (INHALER) IH PRN ×4 (05:56→21:25)
[2023-05-18] MEDS: NICOTINE 14 MG/24 HOURS TOPICAL PATCH TD SCH (10:20)
[2023-05-18] MEDS: GABAPENTIN 400 MG CAPSULE PO SCH ×3 (10:20→21:25)
[2023-05-18] MEDS: PRENATAL VITAMINS W/ FOLIC ACID TABLET (FP) PO SCH (10:41)
[2023-05-18] MEDS: THIAMINE HCL 100 MG TABLET (FP) PO SCH (21:25)
[2023-05-18] MEDS: MELATONIN 5 MG TABLETS PO SCH (21:25)
[2023-05-19] MEDS: methaDONE 80 MG, methaDONE 20 MG PO SCH (06:00)
[2023-05-19] MEDS: NICOTINE 10 MG CARTRIDGE (INHALER) IH PRN ×4 (06:00→21:08)
[2023-05-19] MEDS: GABAPENTIN 400 MG CAPSULE PO SCH ×3 (09:49→21:08)
[2023-05-19] MEDS: NICOTINE 14 MG/24 HOURS TOPICAL PATCH TD SCH (09:49)
[2023-05-19] MEDS: PRENATAL VITAMINS W/ FOLIC ACID TABLET (FP) PO SCH (09:49)
[2023-05-19] MEDS: THIAMINE HCL 100 MG TABLET (FP) PO SCH (21:08)
[2023-05-19] MEDS: MELATONIN 5 MG TABLETS PO SCH (21:08)
[2023-05-20] MEDS: methaDONE 80 MG, methaDONE 20 MG PO SCH (06:16)
[2023-05-20] MEDS: NICOTINE 10 MG CARTRIDGE (INHALER) IH PRN ×4 (06:17→21:19)
[2023-05-20] MEDS: PRENATAL VITAMINS W/ FOLIC ACID TABLET (FP) PO SCH (10:33)
[2023-05-20] MEDS: GABAPENTIN 400 MG CAPSULE PO SCH ×3 (10:33→21:18)
[2023-05-20] MEDS: NICOTINE 14 MG/24 HOURS TOPICAL PATCH TD SCH (10:34)
[2023-05-20] MEDS: MELATONIN 5 MG TABLETS PO SCH (21:18)
[2023-05-20] MEDS: THIAMINE HCL 100 MG TABLET (FP) PO SCH (21:18)
[2023-05-21] MEDS: methaDONE 80 MG, methaDONE 20 MG PO SCH (06:11)
[2023-05-21] MEDS: NICOTINE 10 MG CARTRIDGE (INHALER) IH PRN ×4 (06:12→21:33)
[2023-05-21 07:26] VITALS: TEMP 97.5
[2023-05-21] MEDS: GABAPENTIN 400 MG CAPSULE PO SCH ×3 (09:47→21:33)
[2023-05-21] MEDS: PRENATAL VITAMINS W/ FOLIC ACID TABLET (FP) PO SCH (09:47)
[2023-05-21] MEDS: NICOTINE 14 MG/24 HOURS TOPICAL PATCH TD SCH (09:47)
[2023-05-21] MEDS: MELATONIN 5 MG TABLETS PO SCH (21:33)
[2023-05-21] MEDS: THIAMINE HCL 100 MG TABLET (FP) PO SCH (21:33)
[2023-05-22] MEDS: methaDONE 80 MG, methaDONE 20 MG PO SCH (05:50)
[2023-05-22] MEDS: NICOTINE 10 MG CARTRIDGE (INHALER) IH PRN ×3 (05:51→21:10)
[2023-05-22] MEDS: GABAPENTIN 400 MG CAPSULE PO SCH ×3 (10:09→21:10)
[2023-05-22] MEDS: NICOTINE 14 MG/24 HOURS TOPICAL PATCH TD SCH (10:09)
[2023-05-22] MEDS: PRENATAL VITAMINS W/ FOLIC ACID TABLET (FP) PO SCH (10:21)
[2023-05-22] MEDS: MELATONIN 5 MG TABLETS PO SCH (21:10)
[2023-05-22] MEDS: THIAMINE HCL 100 MG TABLET (FP) PO SCH (21:10)
[2023-05-23] MEDS: NICOTINE 10 MG CARTRIDGE (INHALER) IH PRN (05:48)
[2023-05-23] MEDS ORDERED: methaDONE 80 MG, methaDONE 20 MG PO SCH (06:15)
[2023-05-23 07:10] VITALS: BP 121/79; PULSE 73; RESP 18
[2023-05-23] MEDS: PRENATAL VITAMINS W/ FOLIC ACID TABLET (FP) PO SCH (09:21)
[2023-05-23] MEDS: GABAPENTIN 400 MG CAPSULE PO SCH (09:21)
[2023-05-23] MEDS: NICOTINE 14 MG/24 HOURS TOPICAL PATCH TD SCH (09:21)
== END 2023-05-23 09:35 | disposition home or self-care (01) | DRG 772 ==
LOC: YASAS 14:23 → Y3W 18:45
PROVIDERS: ADMIT Allergy & Immunology; ATTEND Psychiatry & Neurology Pain Medicine
PROC: HZ42ZZZ Group Counseling for Substance Abuse Treatment, Cognitive-Behavioral (ICD-10-PCS; principal; 2023-04-26)
DX: F11.20 Opioid dependence, uncomplicated (principal); F10.20 Alcohol dependence, uncomplicated; F14.20 Cocaine dependence, uncomplicated; F17.210 Nicotine dependence, cigarettes, uncomplicated; F19.282 Other psychoactive substance dependence with psychoactive substance-induced sleep disorder; F31.9 Bipolar disorder, unspecified; F43.10 Post-traumatic stress disorder, unspecified; F41.9 Anxiety disorder, unspecified; Z87.820 Personal history of traumatic brain injury; Z86.59 Personal history of other mental and behavioral disorders
CPT/HCPCS: 36415; 80053; 81003; 85027; 86780; 86803; C9803-CS; U0003; U0005